=== PATIENT | female | born 1965 | race Caucasian/White ===

== ENCOUNTER 2023-06-02 11:43 | Emergency (ER) | payer BC ==
[2023-06-02 12:38] VITALS: BP 100/55; PULSE 92; RESP 18; TEMP 97.4; BMI 28.1
[2023-06-02 13:06] LABS: BASO % 0.7 % (0-2.0); EOS % 0.6 % (0-4.5); HEMATOCRIT 28.5 % (32.4-45.2); LYMPH % 23.2 % (8-40); MCH 24.5 pg (25.7-33.7); MCHC 31.7 g/dl (32.0-36.0); MEAN CELL VOLUME 77.2 fl (80-96); MEAN PLT VOLUME 6.1 fl (7.5-11.1); MONO % 7.8 % (3.8-10.2); NEUT % 67.7 % (42.8-82.8); PLATELET COUNT 412 10^3/uL (134-434); RBC 3.69 M/mm3 (3.60-5.2); RDW 15.9 % (11.6-15.6); WHITE BLOOD COUNT 10.2 K/mm3 (4.0-10.0)
[2023-06-02 13:38] LABS: CALCIUM 8.4 mg/dL (8.5-10.1)
[2023-06-02 13:39] LABS: ALBUMIN 3.5 g/dl (3.4-5.0); BLOOD UREA NITROGEN 22.6 mg/dL (7-18)
[2023-06-02 13:43] LABS: BILIRUBIN,TOTAL 0.2 mg/dL (0.2-1); TOT PROT 6.9 g/dl (6.4-8.2)
[2023-06-02 13:48] LABS: EPI CELLS 8 /uL (0-25.1); HYALINE CASTS 0 /uL (0-3.1); PH,URINE 5.5 (5.0-8.0); URINE APPEARANCE CLEAR; URINE BACTERIA 5 /uL (0-1359); URINE BILIRUBIN NEGATIVE (NEGATIVE); URINE COLOR YELLOW; URINE GLUCOSE (UA) NEGATIVE (NEGATIVE); URINE KETONE NEGATIVE (NEGATIVE); URINE LEUK ESTERASE TRACE (NEGATIVE); URINE NITRITE NEGATIVE (NEGATIVE); URINE PROTEIN NEGATIVE (NEGATIVE); URINE RBC 10 /uL (0-23.9); URINE UROBILINOGEN 0.2 mg/dL (0.2-1.0); URINE WBC 21 /uL (0-25.8)
[2023-06-02] MEDS ORDERED: SODIUM CHLORIDE 0.9% 500 ML INFUS.BAG IV ONE (14:18)
[2023-06-02] MEDS ORDERED: METOCLOPRAMIDE HCL INJECTION 10 MG/2 ML VIAL IVPUSH ONE (14:18)
[2023-06-02] MEDS ORDERED: ACETAMINOPHEN 1000 MG/100 ML BAG IVPB ONE (14:18)
[2023-06-02] MEDS ORDERED: ACETAMINOPHEN INJECTION 100 ML IVPB ONE (14:42)
[2023-06-02] MEDS ORDERED: METOCLOPRAMIDE HCL INJECTION 10 MG/2 ML VIAL ONE (14:42)
[2023-06-02] MEDS ORDERED: KETOROLAC TROMETHAMINE 30 MG/1 ML VIAL IVPUSH ONE (15:52)
[2023-06-02] MEDS ORDERED: KETOROLAC TROMETHAMINE 30 MG/1 ML VIAL ONE (16:34)
== END 2023-06-02 17:31 | disposition home or self-care (01) ==
LOC: JER 11:43
PROC: 3E033NZ Introduction of Analgesics, Hypnotics, Sedatives into Peripheral Vein, Percutaneous Approach (ICD-10-PCS; principal; 2023-06-02)
PROC: 3E0333Z Introduction of Anti-inflammatory into Peripheral Vein, Percutaneous Approach (ICD-10-PCS; 2023-06-02)
PROC: 3E033GC Introduction of Other Therapeutic Substance into Peripheral Vein, Percutaneous Approach (ICD-10-PCS; 2023-06-02)
DX: R55 Syncope and collapse (principal); R53.1 Weakness
CPT/HCPCS: 36415; 70450-TC; 71046-TC-FY; 80053; 81003; 82962; 84484; 85025; 93005; 93010; 99285-25

== ENCOUNTER 2023-06-19 13:58 | Observation (INO) | payer BC ==
[2023-06-19 14:12] VITALS: BMI 28.1
[2023-06-19] MEDS ORDERED: SODIUM CHLORIDE 0.9% 500 ML INFUS.BAG IV ONE (15:05)
[2023-06-19] MEDS ORDERED: METOCLOPRAMIDE HCL INJECTION 10 MG/2 ML VIAL IVPUSH ONE (16:24)
[2023-06-19 16:32] LABS: BASO % 0.8 % (0-2.0); EOS % 0.3 % (0-4.5); LYMPH % 25.1 % (8-40); MCH 23.6 pg (25.7-33.7); MEAN CELL VOLUME 76.3 fl (80-96); MEAN PLT VOLUME 6.3 fl (7.5-11.1); MONO % 8.2 % (3.8-10.2); NEUT % 65.6 % (42.8-82.8); PLATELET COUNT 358 10^3/uL (134-434); RDW 16.1 % (11.6-15.6); WHITE BLOOD COUNT 12.3 K/mm3 (4.0-10.0)
[2023-06-19] MEDS ORDERED: METOCLOPRAMIDE HCL INJECTION 10 MG/2 ML VIAL ONE (16:52)
[2023-06-19 17:00] LABS: CHLORIDE 98 mmol/L (98-107); SODIUM 131 mmol/L (136-145)
[2023-06-19 17:02] LABS: ALBUMIN 3.5 g/dl (3.4-5.0); CALCIUM 8.1 mg/dL (8.5-10.1); GLUCOSE,RANDOM 78 mg/dL (74-106)
[2023-06-19 17:03] LABS: BLOOD UREA NITROGEN 26.4 mg/dL (7-18); CO2 20 mmol/L (21-32)
[2023-06-19 17:07] LABS: CREATININE 1.1 mg/dL (0.55-1.3); SGOT/AST 60 U/L (15-37); SGPT/ALT 45 U/L (13-61)
[2023-06-19 17:08] LABS: ALK PHOS 105 U/L (45-117); BILIRUBIN,TOTAL 0.5 mg/dL (0.2-1); TOT PROT 6.8 g/dl (6.4-8.2)
[2023-06-19 17:10] LABS: ANION GAP 13 mmol/L (4-13); POTASSIUM 6.3 mmol/L (3.5-5.1)
[2023-06-19] MEDS ORDERED: ACETAMINOPHEN 1000 MG/100 ML BAG IVPB ONE (18:15)
[2023-06-19] MEDS ORDERED: ACETAMINOPHEN INJECTION 100 ML IVPB ONE (18:30)
[2023-06-19 19:05] LABS: CALCIUM 8.4 mg/dL (8.5-10.1); POTASSIUM 4.1 mmol/L (3.5-5.1)
[2023-06-19 19:06] LABS: BLOOD UREA NITROGEN 21.7 mg/dL (7-18)
[2023-06-19 20:32] LABS: RETICULOCYTES 0.78 % (0.5-1.5)
[2023-06-19] MEDS ORDERED: IBUPROFEN 400 MG TABLET (FP) PO ONE ×2 (23:11→23:17)
[2023-06-19] MEDS ORDERED: ACETAMINOPHEN 1000 MG/100 ML BAG IVPB PRN (23:31)
[2023-06-19] MEDS: MECLIZINE HCL 25 MG TABLET (FP) PO PRN (23:33)
[2023-06-20] MEDS ORDERED: GABAPENTIN 100 MG CAPSULE ONE ×2 (05:28→14:26)
[2023-06-20] MEDS ORDERED: GABAPENTIN 100 MG CAPSULE PO SCH (06:00)
[2023-06-20] MEDS ORDERED: ACETAMINOPHEN INJECTION 100 ML IVPB ONE (08:10)
[2023-06-20 08:16] LABS: URINE APPEARANCE CLEAR; URINE BILIRUBIN NEGATIVE (NEGATIVE); URINE COLOR YELLOW; URINE GLUCOSE (UA) NEGATIVE (NEGATIVE); URINE KETONE NEGATIVE (NEGATIVE); URINE LEUK ESTERASE NEGATIVE (NEGATIVE); URINE NITRITE NEGATIVE (NEGATIVE); URINE PROTEIN NEGATIVE (NEGATIVE); URINE UROBILINOGEN 0.2 mg/dL (0.2-1.0)
[2023-06-20] MEDS ORDERED: MECLIZINE HCL 25 MG TABLET (FP) ONE (08:30)
[2023-06-20] MEDS: MECLIZINE HCL 25 MG TABLET (FP) PO PRN (08:41)
[2023-06-20 09:04] LABS: BASO % 0.8 % (0-2.0); EOS % 1.6 % (0-4.5); HEMATOCRIT 28.8 % (32.4-45.2); HEMOGLOBIN 9.3 GM/dL (10.7-15.3); LYMPH % 34.1 % (8-40); MCH 24.5 pg (25.7-33.7); MCHC 32.2 g/dl (32.0-36.0); MEAN CELL VOLUME 75.9 fl (80-96); MEAN PLT VOLUME 6.4 fl (7.5-11.1); MONO % 7.8 % (3.8-10.2); NEUT % 55.7 % (42.8-82.8); PLATELET COUNT 348 10^3/uL (134-434); RBC 3.79 M/mm3 (3.60-5.2); RDW 16.1 % (11.6-15.6); WHITE BLOOD COUNT 7.2 K/mm3 (4.0-10.0)
[2023-06-20 09:23] LABS: POTASSIUM 4.5 mmol/L (3.5-5.1)
[2023-06-20 09:25] LABS: ALBUMIN 3.2 g/dl (3.4-5.0); BLOOD UREA NITROGEN 19.1 mg/dL (7-18); CALCIUM 7.7 mg/dL (8.5-10.1)
[2023-06-20 09:28] LABS: PHOSPHOROUS 4.2 mg/dL (2.5-4.9)
[2023-06-20 09:30] LABS: BILIRUBIN,TOTAL 0.2 mg/dL (0.2-1); TOT PROT 6.3 g/dl (6.4-8.2)
[2023-06-20 09:35] LABS: CREATININE 0.7 mg/dL (0.55-1.3)
[2023-06-20 09:41] LABS: CHOLESTEROL 124 mg/dL (50-200)
[2023-06-20 09:42] LABS: LDL CHOLESTEROL (ONLY SJRH) 42 mg/dL (5-100)
[2023-06-20 09:44] LABS: HDL CHOLESTEROL 52 mg/dL (40-60)
[2023-06-20] MEDS ORDERED: DULoxetine HCL 30 MG CAPSULE.DR PO SCH (10:00)
[2023-06-20] MEDS ORDERED: ENOXAPARIN NA (PORCINE) 40 MG/0.4 ML DISP.SYRIN SQ SCH (10:00)
[2023-06-20] MEDS ORDERED: SODIUM CHLORIDE 1,000 ML IV STA (10:05)
[2023-06-20 10:44] VITALS: BP 127/72; PULSE 91; RESP 18; TEMP 98.6
[2023-06-20] MEDS ORDERED: methylPREDNISolone NA SUCC 125 MG/2 ML VIAL IVPUSH ONE (12:23)
[2023-06-20] MEDS ORDERED: methylPREDNISolone NA SUCC 125 MG/2 ML VIAL ONE (12:25)
[2023-06-20] MEDS ORDERED: SUMAtriptan SUCCINATE 50 MG TABLET PO ONE (12:30)
[2023-06-20] MEDS ORDERED: SUMAtriptan SUCCINATE 50 MG TABLET ONE ×2 (12:40→14:26)
[2023-06-20] MEDS ORDERED: ROSUVASTATIN CA 20 MG TABLET PO SCH (22:00)
== END 2023-06-20 14:51 | disposition home or self-care (01) ==
LOC: JER 13:58 → JERBED 18:16
PROVIDERS: ADMIT Internal Medicine
PROC: 3E023GC Introduction of Other Therapeutic Substance into Muscle, Percutaneous Approach (ICD-10-PCS; principal; 2023-06-19)
PROC: 3E033NZ Introduction of Analgesics, Hypnotics, Sedatives into Peripheral Vein, Percutaneous Approach (ICD-10-PCS; 2023-06-19)
PROC: 3E0337Z Introduction of Electrolytic and Water Balance Substance into Peripheral Vein, Percutaneous Approach (ICD-10-PCS; 2023-06-19)
PROC: 3E033GC Introduction of Other Therapeutic Substance into Peripheral Vein, Percutaneous Approach (ICD-10-PCS; 2023-06-19)
DX: G43.909 Migraine, unspecified, not intractable, without status migrainosus (principal); R42 Dizziness and giddiness; R00.0 Tachycardia, unspecified; E87.1 Hypo-osmolality and hyponatremia; D64.9 Anemia, unspecified; Z29.89 Encounter for other specified prophylactic measures; Z88.0 Allergy status to penicillin
CPT/HCPCS: 0241U-QW; 36415; 71045-TC-FY; 80048; 80053; 80061; 81003; 82728; 83540; 83550; 83735; 84100; 84443; 84466; 84484; 85025; 85045; 87086; 93005; 93010; 99285-25; G0378

== ENCOUNTER 2024-01-19 13:22 | Observation (INO) | payer BC ==
[2024-01-19] MEDS: SODIUM CHLORIDE 0.9% 500 ML INFUS.BAG IV ONE (14:12)
[2024-01-19] MEDS ORDERED: SODIUM CHLORIDE 1,000 ML IV SCH (14:15)
[2024-01-19 14:25] LABS: BASO % 0.6 % (0-2.0); EOS % 0.8 % (0-4.5); HEMATOCRIT 39.8 % (32.4-45.2); HEMOGLOBIN 13.5 GM/dL (10.7-15.3); LYMPH % 22.8 % (8-40); MCH 30.2 pg (25.7-33.7); MCHC 33.8 g/dl (32.0-36.0); MEAN CELL VOLUME 89.3 fl (80-96); MEAN PLT VOLUME 6.6 fl (7.5-11.1); MONO % 5.2 % (3.8-10.2); NEUT % 70.6 % (42.8-82.8); PLATELET COUNT 364 10^3/uL (134-434); RBC 4.46 M/mm3 (3.60-5.2); RDW 16.5 % (11.6-15.6); WHITE BLOOD COUNT 9.8 K/mm3 (4.0-10.0)
[2024-01-19 14:30] LABS: INR 0.99 (0.83-1.09); PROTHROMBIN TIME (PATIENT) 11.2 SEC (9.7-13.0)
[2024-01-19 14:33] LABS: ACTIVATED PTT 35.3 SECONDS (25.2-36.5)
[2024-01-19 14:53] LABS: POTASSIUM 4.5 mmol/L (3.5-5.1)
[2024-01-19 14:55] LABS: BLOOD UREA NITROGEN 26.8 mg/dL (7-18); CALCIUM 9.2 mg/dL (8.5-10.1)
[2024-01-19 14:56] LABS: ALBUMIN 4.3 g/dl (3.4-5.0)
[2024-01-19 14:59] LABS: CREATININE 1.2 mg/dL (0.55-1.3)
[2024-01-19 15:00] LABS: BILIRUBIN,TOTAL 0.4 mg/dL (0.2-1); TOT PROT 7.9 g/dl (6.4-8.2)
[2024-01-19 15:27] LABS: PH,URINE 5.5 (5.0-8.0); URINE APPEARANCE CLEAR; URINE BILIRUBIN NEGATIVE (NEGATIVE); URINE COLOR YELLOW; URINE GLUCOSE (UA) NEGATIVE (NEGATIVE); URINE KETONE NEGATIVE (NEGATIVE); URINE LEUK ESTERASE 2+ (NEGATIVE); URINE NITRITE NEGATIVE (NEGATIVE); URINE PROTEIN NEGATIVE (NEGATIVE); URINE RBC 37.9 /uL (0-23.9); URINE UROBILINOGEN 0.2 mg/dL (0.2-1.0)
[2024-01-19 15:28] LABS: EPI CELLS 10.3 /uL (0-25.1); HYALINE CASTS 0.87 /uL (0-3.1); URINE BACTERIA 163.3 /uL (0-1359)
[2024-01-19] MEDS ORDERED: ACETAMINOPHEN INJECTION 100 ML IVPB ONE (15:30)
[2024-01-19] MEDS: ACETAMINOPHEN 1000 MG/100 ML BAG IVPB ONE (15:42)
[2024-01-19] MEDS ORDERED: CEFTRIAXONE 1 GM/50 ML BAG ONE (16:04)
[2024-01-19] MEDS: CEFTRIAXONE 1,000 MG in DEXTROSE 5%-WATER - 50 ML IVPB ONE (16:04)
[2024-01-19] MEDS ORDERED: MIDAZOLAM HCL 2 MG/2 ML SINGLE DOSE VIAL ONE (18:36)
[2024-01-19 18:56] LABS: CREATININE 1.2 mg/dL (0.55-1.3)
[2024-01-19] MEDS: MIDAZOLAM HCL 2 MG/2 ML SINGLE DOSE VIAL IVPUSH ONE (18:57)
[2024-01-19] MEDS: GABAPENTIN 100 MG CAPSULE PO SCH (21:40)
[2024-01-19] MEDS: ROSUVASTATIN CA 10 MG TABLET PO SCH (21:40)
[2024-01-20] MEDS: LIDOCAINE 4% PATCH TP SCH (00:29)
[2024-01-20 01:13] VITALS: RESP 17; BMI 26.9
[2024-01-20] MEDS: LIDOCAINE PATCH REMOVAL MC SCH ×2 (03:31→11:00)
[2024-01-20] MEDS: DULoxetine HCL 30 MG CAPSULE.DR PO ONE (05:28)
[2024-01-20 08:05] VITALS: PULSE 90
[2024-01-20 08:38] LABS: POTASSIUM 4.4 mmol/L (3.5-5.1)
[2024-01-20 08:46] LABS: ALBUMIN 3.5 g/dl (3.4-5.0); BLOOD UREA NITROGEN 14.4 mg/dL (7-18); CALCIUM 8.8 mg/dL (8.5-10.1)
[2024-01-20 08:47] LABS: BILIRUBIN,TOTAL 0.2 mg/dL (0.2-1); MAGNESIUM 2.2 mg/dL (1.8-2.4); TOT PROT 6.6 g/dl (6.4-8.2)
[2024-01-20 08:49] LABS: CREATININE 0.8 mg/dL (0.55-1.3); PHOSPHOROUS 4.5 mg/dL (2.5-4.9)
[2024-01-20] MEDS: IBUPROFEN 400 MG TABLET (FP) PO ONE (09:45)
[2024-01-20] MEDS ORDERED: DULoxetine HCL 30 MG CAPSULE.DR PO SCH ×2 (10:00→20:00)
[2024-01-20] MEDS ORDERED: LIDOCAINE 4% PATCH TP SCH (10:00)
[2024-01-20] MEDS: CYCLOBENZAPRINE HCL 5 MG TABLET PO ONE (11:27)
[2024-01-20] MEDS: ACETAMINOPHEN/CAFFEINE/BUTALBITAL 1 TAB PO PRN (12:12)
[2024-01-20] MEDS: LISINOPRIL 5 MG TABLET PO SCH (13:33)
[2024-01-20 13:48] VITALS: BP 126/73; TEMP 98.1
[2024-01-20] MEDS: ACETAMINOPHEN 1000 MG/100 ML BAG IVPB ONE (16:49)
== END 2024-01-20 18:26 | disposition home or self-care (01) ==
LOC: JER 13:22 → INTOOBSV 17:35 → UNDOADMOB 17:35 → JERBED 17:35 → J4W 20:30 → JERBED 20:30 → J4W 01-20 08:56
PROVIDERS: ADMIT Internal Medicine; ATTEND Internal Medicine
DX: G43.109 Migraine with aura, not intractable, without status migrainosus (principal); I16.0 Hypertensive urgency; Z87.891 Personal history of nicotine dependence; N17.9 Acute kidney failure, unspecified; E78.5 Hyperlipidemia, unspecified; R25.1 Tremor, unspecified; R47.01 Aphasia; E87.1 Hypo-osmolality and hyponatremia; R22.42 Localized swelling, mass and lump, left lower limb; F41.9 Anxiety disorder, unspecified; F32.A Depression, unspecified; Z88.0 Allergy status to penicillin
CPT/HCPCS: 36415; 70450-TC; 70544-TC; 70547-TC; 70551-TC; 71045-TC-FY; 80053; 80061; 81003; 82565; 83036; 83735; 83835; 83930; 84100; 84295; 84484; 85025; 85610; 85730; 86704; 86709; 86803; 87086; 87340; 87517; 93005; 93010; 93971-TC; 99285-25; G0378; J0131

== ENCOUNTER 2024-12-09 13:31 | Emergency (ER) | payer BC ==
[2024-12-09 13:38] VITALS: BMI 28.1
[2024-12-09] MEDS ORDERED: ONDANSETRON 4 MG/2 ML VIAL ONE ×2 (14:11→14:29)
[2024-12-09 14:17] LABS: ABSOLUTE IMMATURE GRANULOCYTES 0.07 x10^3/uL (0.0-0.031); BASOPHILS # 0.04 x10^3/uL (0.01-0.08); EOSINOPHIL % 0.3 % (0.7-5.8); EOSINOPHILS # 0.04 x10^3/uL (0.04-0.36); HEMATOCRIT 41.2 % (34.1-44.9); HEMOGLOBIN 12.9 g/dL (11.2-15.7); MCHC 31.3 g/dl (32.2-35.5); MEAN CELL VOLUME 97.2 fl (79.4-94.8); MEAN PLT VOLUME 8.2 fl (9.4-12.3); MONOCYTE # 0.76 x10^3/uL (0.24-0.86); MONOCYTE % 6.5 % (4.7-12.5); PLATELET COUNT 278 x10^3/uL (182-369); RDW 13.1 % (12.3-16.6)
[2024-12-09] MEDS ORDERED: MECLIZINE HCL 25 MG TABLET (FP) ONE (14:28)
[2024-12-09 14:42] LABS: CHLORIDE 108 mmol/L (98-107); SODIUM 139 mmol/L (136-145)
[2024-12-09 14:44] LABS: CALCIUM 9.3 mg/dL (8.5-10.1)
[2024-12-09 14:45] LABS: ALBUMIN 3.8 g/dl (3.4-5.0); ANION GAP 4 mmol/L (4-13); CO2 26 mmol/L (21-32); GLUCOSE,RANDOM 112 mg/dL (74-106)
[2024-12-09 14:48] LABS: CREATININE 0.9 mg/dL (0.55-1.3); SGOT/AST 45 U/L (15-37)
[2024-12-09 14:49] LABS: SGPT/ALT 76 U/L (13-61); TOT PROT 7.1 g/dl (6.4-8.2)
[2024-12-09 14:50] LABS: BILIRUBIN,TOTAL 0.4 mg/dL (0.2-1)
[2024-12-09 14:51] LABS: ALK PHOS 136 U/L (45-117)
[2024-12-09] MEDS: SODIUM CHLORIDE 0.9% 500 ML INFUS.BAG IV ONE (14:53)
[2024-12-09] MEDS: ONDANSETRON 4 MG/2 ML VIAL IVPUSH ONE (14:53)
[2024-12-09] MEDS: MECLIZINE HCL 25 MG TABLET (FP) PO ONE (14:53)
[2024-12-09] MEDS ORDERED: KETOROLAC TROMETHAMINE 30 MG/1 ML VIAL ONE (15:21)
[2024-12-09] MEDS: KETOROLAC TROMETHAMINE 30 MG/1 ML VIAL IVPUSH ONE (15:26)
[2024-12-09 15:34] LABS: HIV INTERPRETATION NEGATIVE (NEGATIVE)
[2024-12-09 19:33] VITALS: BP 158/88; PULSE 79; RESP 18
[2024-12-09 20:42] LABS: HCV DIAGNOSTIC IN-HOUSE W/RFLX NON-REACTIVE (NONREACTIVE)
== END 2024-12-09 19:33 | disposition home or self-care (01) ==
LOC: JER 13:31
PROC: 3E0333Z Introduction of Anti-inflammatory into Peripheral Vein, Percutaneous Approach (ICD-10-PCS; principal; 2024-12-09)
PROC: 3E033GC Introduction of Other Therapeutic Substance into Peripheral Vein, Percutaneous Approach (ICD-10-PCS; 2024-12-09)
DX: K52.9 Noninfective gastroenteritis and colitis, unspecified (principal); R11.2 Nausea with vomiting, unspecified; R42 Dizziness and giddiness; R93.5 Abnormal findings on diagnostic imaging of other abdominal regions, including retroperitoneum; R10.9 Unspecified abdominal pain
CPT/HCPCS: 0241U-QW; 36415; 74177-TC; 76705-TC; 80053; 80307; 83690; 85025; 86803; 87389; 99285-25; Q9967

== ENCOUNTER 2025-03-10 06:14 | Day surgery (SDC) | payer BC ==
[2025-03-10] MEDS ORDERED: ACETAMINOPHEN 500 MG TABLET (FP) PO PRN (08:41)
[2025-03-10] MEDS: BUPIVACAINE HCL/PF 0.75% 10 ML VIAL NR ONE ×2 (13:29)
[2025-03-10] MEDS: LIDOCAINE HCL 1% PRESERVATIVE FREE - 30ML VIAL IJ ONE ×3 (13:29)
[2025-03-10 13:51] VITALS: RESP 18; TEMP 98.3
[2025-03-10 14:01] VITALS: BP 134/91; PULSE 81
== END 2025-03-10 14:01 | disposition home or self-care (01) ==
LOC: JASU-SURG 06:14
PROVIDERS: ATTEND Pain Medicine Pain Medicine
PROC: 3E0T33Z Introduction of Anti-inflammatory into Peripheral Nerves and Plexi, Percutaneous Approach (ICD-10-PCS; 2025-03-10)
PROC: 3E0T3BZ Introduction of Anesthetic Agent into Peripheral Nerves and Plexi, Percutaneous Approach (ICD-10-PCS; principal; 2025-03-10 14:30)
DX: M47.816 Spondylosis without myelopathy or radiculopathy, lumbar region (principal)
CPT/HCPCS: 76000-TC-FY